=== PATIENT | female | born 1985 | race Caucasian/White ===

== ENCOUNTER 2017-08-06 09:33 | Emergency (ER) | payer BC ==
[~2017-08-06] VITALS: Ht 170.2 cm; Wt 60.0 kg
[~2017-08-06 09:33] MED LIST: MOTRIN800 MG PO
[2017-08-06] MEDS ORDERED: SILVADENE1 % EX (09:57)
[2017-08-06] MEDS ORDERED: BACITRACIN3.5 GM TOP (09:57)
[2017-08-06] MEDS ORDERED: TRAMADOL HYDROC50 MG PO (09:57)
[2017-08-06 10:25] VITALS: BP 163/81
== END 2017-08-06 10:26 | disposition home or self-care (01) | DRG 935 ==
LOC: ED 09:33
PROC: 2W2CX4Z Dressing of Right Lower Arm using Bandage (ICD-10-PCS; principal; 2017-08-06)
DX: T22.211A Burn of second degree of right forearm, initial encounter (principal); T20.14XA Burn of first degree of nose (septum), initial encounter; X03.8XXA Other exposure to controlled fire, not in building or structure, initial encounter; Y93.H9 Activity, other involving exterior property and land maintenance, building and construction; Y92.009 Unspecified place in unspecified non-institutional (private) residence as the place of occurrence of the external cause